=== PATIENT | male | born 1995 | race Two or more races ===

== ENCOUNTER 2017-03-29 00:46 | Emergency (ER) | payer MEDICAID ==
[2017-03-29 00:59] VITALS: TEMP 98.1
--- NOTE | 2017-03-29 00:59 | EDPHY ---
H & P Time Seen by Provider: 03/29/17 00:57 HPI/ROS: Chief Complaint: Alcohol intoxication HPI: 22-year-old male who was found in public intoxicated, sleeping.. Patient passed out after drinking alcohol and using some cocaine. Patient was noted to be tachycardic by EMS Patient brought in by EMS for further evaluation. No obvious signs of trauma per EMS. Patient is able to account for events. Denies falling or hitting his head. Does state he has been drinking alcohol tonight. Did also admit to using some cocaine. ROS: 10 point Review of Systems is negative except as noted in the HPI. PMH: Denies Medications: None Allergies: None Social History: Positive for alcohol, occasional cocaine, occasional marijuana Family History: non-contributory Physical Exam: Gen: Awake, slurred speech, smells of alcohol HEENT: Atraumatic Nose: no epistaxis or deformity Eyes: PERRLA, EOMI Mouth: Moist mucosa Neck: Supple, no step-offs or deformity Chest: Atraumatic, lungs clear to auscultation Heart: S1, S2 normal, no murmur Abd: Soft, non-tender, no guarding Back: Atraumatic Ext: no edema, atraumatic Skin: no rash Neuro: Sensation grossly intact, Strength 5/5 in bilateral upper and lower extremities - Personal History Tetanus Vaccine Date: <10YRS - Medical/Surgical History Hx Asthma: No Hx Chronic Respiratory Disease: No Hx Diabetes: No Hx Cardiac Disease: No Hx Renal Disease: No Hx Cirrhosis: No Hx Alcoholism: No Hx HIV/AIDS: No Hx Splenectomy or Spleen Trauma: No Other PMH: denies - Social History Smoking Status: Never smoked Constitutional: Initial Vital Signs Temperature (C) 36.7 C 03/29/17 00:57 Heart Rate 113 H 03/29/17 00:57 Respiratory Rate 16 03/29/17 00:57 Blood Pressure 138/85 H 03/29/17 00:57 O2 Sat (%) 95 03/29/17 00:57 O2 Delivery Mode Room Air Allergies/Adverse Reactions: No Known Allergies Allergy (Verified 04/10/15 22:52) Home Medications: Medication Instructions Recorded NK [No Known Home Meds] 04/10/15 Medical Decision Making ED Course/Re-evaluation: Patient is awake and appropriate. Ambulating unassisted to the bathroom. No current complaints. Medically cleared for discharge Departure - Departure Disposition: Home, Routine, Self-Care Clinical Impression: Alcoholic intoxication, Cocaine abuse Condition: Good Instructions: Cocaine Abuse (ED), Alcohol Intoxication (ED) Additional Instructions: Please try to avoid binge drinking alcohol. Referrals: Patient,NotPresent [Primary Care Provider] - As per Instructions
[2017-03-29 01:15] VITALS: BP 123/85; PULSE 109; RESP 18; O2SAT 96
== END 2017-03-29 01:16 | disposition home or self-care (01) ==
LOC: EDUNIT#
DX: F10.129 Alcohol abuse with intoxication, unspecified (principal); F14.10 Cocaine abuse, uncomplicated